=== PATIENT | female | born 1950 | race Hispanic/Latino ===

== ENCOUNTER → 2023-12-20 | Outpatient (CLI) | payer MEDICARE | END | disposition home or self-care (01) | LOC: SHCH 08:41 | PROVIDERS: ATTEND Student in an Organized Health Care Education/Training Program | DX: I08.8 Other rheumatic multiple valve diseases (principal) | CPT/HCPCS: 93306 ==

== ENCOUNTER → 2024-03-02 | Outpatient (CLI) | payer MEDICARE ==
[2024-03-02 21:45] VITALS: PULSE 58; RESP 12
[2024-03-02 22:30] VITALS: PULSE 60; RESP 18
[2024-03-02 23:00] VITALS: PULSE 56; RESP 14
[2024-03-02 23:30] VITALS: PULSE 52; RESP 18
[2024-03-03] VITALS (11 sets, daily range): PULSE 50–58; RESP 14–16
== END | disposition home or self-care (01) ==
LOC: SLP 20:23
PROVIDERS: ATTEND Student in an Organized Health Care Education/Training Program
DX: G47.33 Obstructive sleep apnea (adult) (pediatric) (principal)
CPT/HCPCS: 95810